=== PATIENT | female | born 1950 | race American Indian/Alaskan Native ===

== ENCOUNTER 2017-11-12 08:39 | Outpatient (CLI) | payer BC | END 2017-11-12 08:40 | disposition home or self-care (01) | LOC: LAB 08:39 | PROVIDERS: ATTEND Specialist | DX: M31.6 Other giant cell arteritis (principal); Z88.0 Allergy status to penicillin; Z88.6 Allergy status to analgesic agent | CPT/HCPCS: 36415; 85652 ==